=== PATIENT | female | born 1985 | race Caucasian/White ===

== ENCOUNTER 2018-01-08 16:07 | Inpatient (IN) | payer SELFPAY ==
[2018-01-08] VITALS (10 sets, daily range): BP systolic 117–134; BP diastolic 49–93
[~2018-01-08] VITALS: Ht 157.5 cm; Wt 93.6 kg
[2018-01-08] MEDS ORDERED: RT-ALBUTEROL/IPRATROPIUM 3 ML (DUONEB) VIAL INH ONE (16:45)
--- NOTE | 2018-01-08 16:50 | ED Cough/URI ---
General Chief Complaint: Cough/Cold/Flu Symptoms Stated Complaint: CONGESTED, COUGHING, FEVER Nursing Triage Note: PT PRESENTS TO ER WITH COMPLAINT OF COUGH, SOB, FEVER, AND MALAISE FOR 4-5 DAYS. Source: patient Exam Limitations: no limitations History of Present Illness Date Seen by Provider: Jan 08, 2018 Time Seen by Provider: 16:48 Initial Comments To ER with reports of a one-week history of cough shortness of breath intermittent fever and malaise. No history of asthma. She does smoke 1/2-3/4 of a pack of cigarettes per day. Timing/Duration: week, getting worse Severity/Quality: dry cough Associated Symptoms: wheezing Allergies and Home Medications Allergies Coded Allergies: No Known Drug Allergies (Unverified , 01/08/18) Home Medications No Active Prescriptions or Reported Meds Patient Home Medication List Home Medication List Reviewed: Yes Review of Systems Review of Systems Constitutional: see HPI, chills, fever EENTM: see HPI Respiratory: see HPI, short of breath (i NOW), wheezing Cardiovascular: no symptoms reported Genitourinary: no symptoms reported Musculoskeletal: no symptoms reported Skin: no symptoms reported Psychiatric/Neurological: No Symptoms Reported Past Flfvedp-Jssasj-Wfqneh Hx Patient Social History Alcohol Use: Denies Use Recreational Drug Use: No Smoking Status: Current Everyday Smoker Type Used: Cigars Recent Foreign Travel: No Contact w/Someone Who Travel: No Recent Infectious Disease Expo: No Recent Hopitalizations: No Immunizations Up To Date Tetanus Booster (TDap): Unknown PED Vaccines UTD: Yes Seasonal Allergies Seasonal Allergies: No Past Medical History Surgeries: Yes Tubal Ligation Respiratory: No Cardiac: No Neurological: No Genitourinary: No Gastrointestinal: No Musculoskeletal: No Endocrine: No HEENT: No Cancer: No Psychosocial: No Integumentary: No Blood Disorders: No Physical Exam Vital Signs - First Documented 01/08/18 16:35 Temp 98.0 Pulse 120 Resp 20 B/P (MAP) 165/107 (126) Pulse Ox 92 O2 Delivery Room Air Capillary Refill : Less Than 3 Seconds Height: 5'3.00" Weight: 170lbs. oz. 77.510135st; BMI Method:Stated General Appearance: WD/WN, no apparent distress, other (oxygen saturation 89% at rest and increases to 93% with talking.) Eyes: Bilateral Eye Normal Inspection, Bilateral Eye PERRL, Bilateral Eye EOMI HEENT: PERRL/EOMI, normal ENT inspection Neck: non-tender, full range of motion Respiratory: no respiratory distress, decreased breath sounds, wheezing, other (speaks in full sentences) Cardiovascular: regular rate, rhythm, no murmur Gastrointestinal: normal bowel sounds, non tender, soft Extremities: normal range of motion, non-tender, other (no leg swelling) Neurologic/Psychiatric: alert, normal mood/affect, oriented x 3 Skin: normal color, warm/dry Focused Exam Lactate Level 01/08/18 17:09: Lactic Acid Level 1.23 Lactic Acid Level Laboratory Tests Test 01/08/18 17:09 Lactic Acid Level 1.23 MMOL/L (0.50-2.00) Progress/Results/Core Measures Suspected Sepsis Recent Fever Within 48 Hours: Yes Infection Criteria Present: None New/Unexplained Altered Menta: No Sepsis Screen: No Definite Risk SIRS Temperature:98.0 Pulse: 120 Respiratory Rate: 20 Laboratory Tests 01/08/18 17:09: White Blood Count 11.7H Blood Pressure 165 /107 Mean: 126 01/08/18 17:09: Lactic Acid Level 1.23 Laboratory Tests 01/08/18 17:09: Creatinine 0.76, Platelet Count 238 Results/Orders Lab Results Laboratory Tests Test 01/08/18 17:09 01/08/18 18:25 Range/Units White Blood Count 11.7 H 4.3-11.0 10^3/uL Red Blood Count 5.07 4.35-5.85 10^6/uL Hemoglobin 15.1 11.5-16.0 G/DL Hematocrit 43 35-52 % Mean Corpuscular Volume 85 80-99 FL Mean Corpuscular Hemoglobin 30 25-34 PG Mean Corpuscular Hemoglobin Concent 35 32-36 G/DL Red Cell Distribution Width 13.5 10.0-14.5 % Platelet Count 238 130-400 10^3/uL Mean Platelet Volume 11.2 H 7.4-10.4 FL Neutrophils (%) (Auto) 69 42-75 % Lymphocytes (%) (Auto) 20 12-44 % Monocytes (%) (Auto) 8 0-12 % Eosinophils (%) (Auto) 3 0-10 % Basophils (%) (Auto) 0 0-10 % Neutrophils # (Auto) 8.0 H 1.8-7.8 X 10^3 Lymphocytes # (Auto) 2.4 1.0-4.0 X 10^3 Monocytes # (Auto) 1.0 0.0-1.0 X 10^3 Eosinophils # (Auto) 0.3 0.0-0.3 10^3/uL Basophils # (Auto) 0.0 0.0-0.1 10^3/uL D-Dimer 0.90 H 0.00-0.49 UG/ML Sodium Level 138 135-145 MMOL/L Potassium Level 3.6 3.6-5.0 MMOL/L Chloride Level 106 98-107 MMOL/L Carbon Dioxide Level 18 L 21-32 MMOL/L Anion Gap 14 5-14 MMOL/L Blood Urea Nitrogen 8 7-18 MG/DL Creatinine 0.76 0.60-1.30 MG/DL Estimat Glomerular Filtration Rate > 60 BUN/Creatinine Ratio 11 Glucose Level 101 70-105 MG/DL Lactic Acid Level 1.23 0.50-2.00 MMOL/L Calcium Level 9.2 8.5-10.1 MG/DL Serum Test, Qualitative NEGATIVE NEGATIVE Blood Gas Puncture Site RT RAD Blood Gas Patient Temperature 99.8 Arterial Blood pH 7.39 7.37-7.43 Arterial Blood Partial Pressure CO2 35 35-45 MMHG Arterial Blood Partial Pressure O2 43 L 79-93 MMHG Arterial Blood HCO3 20 L 23-27 MMOL/L Arterial Blood Total CO2 21.3 21.0-31.0 MMOL/L Arterial Blood Oxygen Saturation 74 L 94-100 % Arterial Blood Base Excess -3.7 L -2.5-2.5 MMOL/L Ketan Test YES-POS Blood Gas Ventilator Setting NO Blood Gas Inspired Oxygen 4L My Orders 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 Albuterol/Ipra Inhalation Soln (Duoneb I (01/08/18 16:45) Svn Small Volume Nebulizer (01/08/18 16:43) Cbc With Automated Diff (01/08/18 16:47) Hcg,Qualitative Serum (01/08/18 16:47) Basic Metabolic Panel (01/08/18 16:47) Iv Heplock-Insert (Order) (01/08/18 16:47) Methylprednisolone Sod Succ (Solu-Medrol (01/08/18 17:00) Fibrin Degradation Products (01/08/18 17:05) Albuterol Pre-Mix Nebs (Rt) (Proventil (01/08/18 21:00) Svn Small Volume Nebulizer (01/08/18 17:05) Albuterol Pre-Mix Nebs (Rt) (Proventil (01/08/18 17:15) Svn Small Volume Nebulizer (01/08/18 17:08) Blood Culture (01/08/18 17:10) Lactic Acid Analyzer (01/08/18 17:10) Ns Iv 1000 Ml (Sodium Chloride 0.9%) (01/08/18 17:15) Ibuprofen Tablet (Motrin Tablet) (01/08/18 18:30) Ibuprofen Tablet (Motrin Tablet) (01/08/18 18:30) Chest 1 View, Ap/Pa Only (01/08/18 18:22) Arterial Blood Gas (01/08/18 18:25) Ct Angio Chest W (01/08/18 18:25) Iohexol Injection (Omnipaque 350 Mg/Ml 1 (01/08/18 18:30) Ns (Ivpb) (Sodium Chloride 0.9%) (01/08/18 18:30) Pharmacy Communication (Pharmacy Communi (01/08/18 18:29) Medications Given in ED Current Medications Medications Dose Ordered Sig/Malena Route Start Time Stop Time Status Last Admin Dose Admin Albuterol/ Ipratropium 3 ml ONCE ONCE INH 01/08/18 16:45 01/08/18 16:46 DC 01/08/18 16:47 3 ML Ibuprofen 800 mg ONCE ONCE PO 01/08/18 18:30 01/08/18 18:31 DC 01/08/18 18:30 800 MG Iohexol 100 ml ONCE ONCE IV 01/08/18 18:30 01/08/18 18:31 DC 01/08/18 18:58 100 ML Methylprednisolone Sodium Succinate 125 mg ONCE ONCE IVP 01/08/18 17:00 01/08/18 17:01 DC 01/08/18 17:19 125 MG Sodium Chloride 250 ml ONCE ONCE IV 01/08/18 18:30 01/08/18 18:31 DC 01/08/18 18:58 80 ML Vital Signs/I&O 01/08/1818 01/08/18 16:35 16:52 17:21 Temp 98.0 Pulse 120 Resp 20 B/P (MAP) 165/107 (126) Pulse Ox 92 92 92 O2 Delivery Room Air Room Air OxyMask Capillary Refill : Less Than 3 Seconds Blood Pressure Mean: 126 Departure Communication (Admissions) Time/Spoke to Admitting Phy: 19:[address] Baldwin. Steroids and Zithromax. Time/Spoke to Consulting Phy: 19:[address] Baldwin, he agrees with the plan and will consult in the morning. 1823-after the DuoNeb and hour-long albuterol treatment her oxygen saturation dropped to 86% on room air. She is still very wheezy.she was given oxygen at 5 L percent on mask with improvement in oxygen saturation to 89-90%. Since this was inadequate Vapotherm will be started. Steroids have been given. 1940-Vapotherm is going, 100% FiO2, 25 L. Her oxygen saturation is 95% on room air, heart rate 111 blood pressure 145/115. Respiratory rate is down to 20. She is much less wheezy at this time and states that she overall feels quite a bit better. 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 She does state that she was born premature and had some lung diseases as a child but states that she hasn't seen a doctor for many years and hasn't had any known medical conditions. Impression Primary Impression: Hypoxia Additional Impression: Reactive airway disease Disposition: ADMITTED INPATIENT Condition: Stable Admissions Decision to Admit Reason: Admit from ER (General) Decision to Admit/Date: Jan 08, 2018 Time/Decision to Admit Time: 19:43 Departure-Patient Inst. Scripts No Active Prescriptions or Reported Meds CAITY SAHNI APRN Jan 08, 2018 16:50
[2018-01-08] MEDS ORDERED: methylPREDNISolone 125 MG (Solu-MEDROL) VIAL IVP ONE (17:00)
[2018-01-08] MEDS ORDERED: NS IV 1000 ML 1,000 ML IV SCH (17:15)
[2018-01-08] MEDS ORDERED: RT-ALBUTEROL SULF 2.5 MG/3 ML PRE-MIX VIAL INH SCH ×2 (17:15→21:00)
[2018-01-08 17:55] LABS: BASOPHILS % (AUTO) 0 % (0-10); EOSINOPHILS # (AUTO) 0.3 10^3/uL (0.0-0.3); EOSINOPHILS % (AUTO) 3 % (0-10); HEMATOCRIT 43 % (35-52); HEMOGLOBIN 15.1 G/DL (11.5-16.0); LYMPHOCYTES # (AUTO) 2.4 X 10^3 (1.0-4.0); LYMPHOCYTES % (AUTO) 20 % (12-44); MEAN CORPUSCULAR HEMOGLOBIN 30 PG (25-34); MEAN CORPUSCULAR HGB CONC 35 G/DL (32-36); MEAN CORPUSCULAR VOLUME 85 FL (80-99); MEAN PLATELET VOLUME 11.2 FL (7.4-10.4); MONOCYTES % (AUTO) 8 % (0-12); NEUTROPHILS % (AUTO) 69 % (42-75); PLATELET COUNT 238 10^3/uL (130-400); RED BLOOD COUNT 5.07 10^6/uL (4.35-5.85); RED CELL DISTRIBUTION WIDTH 13.5 % (10.0-14.5); WHITE BLOOD COUNT 11.7 10^3/uL (4.3-11.0)
[2018-01-08 18:08] LABS: BUN/CREATININE RATIO 11; CALCIUM 9.2 MG/DL (8.5-10.1); CARBON DIOXIDE 18 MMOL/L (21-32); CHLORIDE 106 MMOL/L (98-107); CREATININE SERUM 0.76 MG/DL (0.60-1.30); GFR ESTIMATED > 60; GLUCOSE 101 MG/DL (70-105); POTASSIUM 3.6 MMOL/L (3.6-5.0); SODIUM 138 MMOL/L (135-145)
[2018-01-08] MEDS ORDERED: IOHEXOL 350 MG/ML 100 ML (OMNIPAQUE 350) VIAL IV ONE (18:30)
[2018-01-08] MEDS ORDERED: NS 250 ML (IVPB) BAG IV ONE (18:30)
[2018-01-08] MEDS ORDERED: IBUPROFEN 800 MG (MOTRIN) TAB PO ONE ×2 (18:30)
[2018-01-08 18:45] LABS: ABG BASE EXCESS -3.7 MMOL/L (-2.5-2.5); ABG OXYGEN SATURATION 74 % (94-100); ABG PCO2 35 MMHG (35-45); ABG PH 7.39 (7.37-7.43); ABG PO2 43 MMHG (79-93); ABG TCO2 21.3 MMOL/L (21.0-31.0)
[2018-01-08 18:46] LABS: ALLENS TEST YES-POS
[2018-01-08 18:47] LABS: PATIENT TEMP 99.8
[2018-01-08 18:53] LABS: INSPIRED O2 4L; VENTILATOR NO
--- NOTE | 2018-01-08 19:11 | Diagnostic Imaging Report ---
INDICATION: Fever and shortness of breath. No comparison available. FINDINGS: The lungs demonstrate no focal consolidation. There is no effusion or evidence of a pneumothorax. There does, however, appear to be some central perihilar bronchial wall thickening and interstitial thickening. There is no pneumothorax. Heart size and mediastinal contours appear appropriate. Pulmonary vascularity appears normal. IMPRESSION: 1. Central perihilar bronchial wall thickening suggests underlying airways inflammation and may relate to a bronchitis. No alveolar pneumonia is apparent. Dictated by: Dictated on workstation # [id number]
--- NOTE | 2018-01-08 19:21 | Diagnostic Imaging Report ---
PROCEDURE: CT angiography of the chest with contrast. TECHNIQUE: Multiple contiguous axial images were obtained through the chest after uneventful bolus administration of intravenous contrast. Reconstructed CTA MIP acquisitions were also performed. INDICATION: Fever, shortness of air. COMPARISON: No previous for comparison. FINDINGS: There are no intraluminal pulmonary arterial filling defects. There are no findings of pulmonary arterial embolus. The thoracic aorta is patent and nonaneurysmal. Some thickening of the mildly ectatic central airways and some mild micronodular prominence of the interstitial lung markings which may reflect chronic disease or an acute inflammatory process. There is, however, no alveolar consolidation and there is no thoracic effusion. There is bilateral hilar lymphadenopathy, largest right hilar nodes 1.8 x 1.4 cm and on the left 1.9 x 1.4 cm. Largest subcarinal mass 1.9 x 1.1 cm. Left lower paratracheal adenopathy measures 1.5 cm long axis. Right lower paratracheal adenopathy 1.7 cm. Some subcentimeter superior paratracheal nodes are present. No dominant lung parenchymal mass. No suspect lytic or sclerotic bone lesion visualized upper abdomen demonstrates cholelithiasis with intact adrenal glands and nonfocal incompletely visualized liver and spleen. IMPRESSION: 1. Negative for PE or acute aortic disease. 2. Likely acute on chronic interstitial lung disease with hilar and mediastinal lymphadenopathy. Andres disease may be reactive or neoplastic, consider a short-term followup. 3. Cholelithiasis without biliary dilatation. 4. No thoracic effusion, abscess or empyema. Dictated by: Dictated on workstation # [id number]
[2018-01-08] MEDS ORDERED: CATHETER FLUSH 10 ML SYR IV PRN (20:30)
[2018-01-08] MEDS ORDERED: ONDANSETRON 4 MG/2 ML (SDV) Z0FRAN IV PRN (20:30)
[2018-01-08] MEDS: NS IV 1000 ML 1,000 ML IV SCH (22:40)
[2018-01-08] MEDS: CATHETER FLUSH 10 ML SYR IV SCH (22:46)
[2018-01-08] MEDS: AZITHROMYCIN 500 MG/NS 250 ML IVPB IV SCH ×2 (22:46)
[2018-01-08] MEDS ORDERED: RT-ALBUTEROL/IPRATROPIUM 3 ML (DUONEB) VIAL INH PRN (23:45)
[2018-01-08] MEDS: methylPREDNISolone 125 MG (Solu-MEDROL) VIAL IV SCH (23:53)
[2018-01-09] VITALS (24 sets, daily range): BP systolic 111–146; BP diastolic 65–97
[2018-01-09] MEDS ORDERED: RT-ALBUTEROL/IPRATROPIUM 3 ML (DUONEB) VIAL INH SCH (02:00)
[2018-01-09 03:30] LABS: BASOPHILS % (AUTO) 0 % (0-10); EOSINOPHILS % (AUTO) 0 % (0-10); HEMATOCRIT 39 % (35-52); HEMOGLOBIN 13.7 G/DL (11.5-16.0); LYMPHOCYTES # (AUTO) 0.6 X 10^3 (1.0-4.0); LYMPHOCYTES % (AUTO) 7 % (12-44); MEAN CORPUSCULAR HEMOGLOBIN 30 PG (25-34); MEAN CORPUSCULAR HGB CONC 35 G/DL (32-36); MEAN CORPUSCULAR VOLUME 86 FL (80-99); MEAN PLATELET VOLUME 11.3 FL (7.4-10.4); MONOCYTES % (AUTO) 1 % (0-12); NEUTROPHILS # (AUTO) 7.9 X 10^3 (1.8-7.8); NEUTROPHILS % (AUTO) 92 % (42-75); PLATELET COUNT 218 10^3/uL (130-400); RED BLOOD COUNT 4.54 10^6/uL (4.35-5.85); RED CELL DISTRIBUTION WIDTH 13.2 % (10.0-14.5); WHITE BLOOD COUNT 8.5 10^3/uL (4.3-11.0)
[2018-01-09 03:53] LABS: ALANINE AMINOTRANSFERASE 22 U/L (0-55); ALBUMIN 3.7 GM/DL (3.2-4.5); ALKALINE PHOSPHATASE 83 U/L (40-136); BILIRUBIN,TOTAL 0.3 MG/DL (0.1-1.0); BUN/CREATININE RATIO 13; CALCIUM 8.9 MG/DL (8.5-10.1); CARBON DIOXIDE 16 MMOL/L (21-32); CHLORIDE 110 MMOL/L (98-107); CREATININE SERUM 0.72 MG/DL (0.60-1.30); GFR ESTIMATED > 60; GLUCOSE 180 MG/DL (70-105); MAGNESIUM 2.3 MG/DL (1.8-2.4); PHOSPHORUS 2.1 MG/DL (2.3-4.7); POTASSIUM 3.2 MMOL/L (3.6-5.0); SODIUM 138 MMOL/L (135-145); TOTAL PROTEIN 7.2 GM/DL (6.4-8.2)
[2018-01-09 04:01] LABS: BENZODIAZEPINES SCREEN URINE POSITIVE (NEGATIVE); CANNABINOID SCREEN, URINE POSITIVE (NEGATIVE); OPIATE SCREEN URINE POSITIVE (NEGATIVE)
[2018-01-09 04:02] LABS: AMPHETAMINE SCREEN, URINE NEGATIVE (NEGATIVE); BARBITURATE SCREEN URINE NEGATIVE (NEGATIVE); COCAINE SCREEN URINE NEGATIVE (NEGATIVE); METHADONE STAT NEGATIVE (NEGATIVE); METHAMPHETAMINE SCREEN URINE S NEGATIVE (NEGATIVE); OXYCODONE STAT NEGATIVE (NEGATIVE); PROPOXYPHENE STAT NEGATIVE (NEGATIVE); TRICYCLIC ANTIDEPRESSANTS SCRE NEGATIVE (NEGATIVE)
[2018-01-09] MEDS: CATHETER FLUSH 10 ML SYR IV SCH ×3 (05:10→20:30)
[2018-01-09 05:24] LABS: LYMPHOCYTES % (MANUAL) 4 %; NEUTROPHILS % (MANUAL) 96 %
--- NOTE | 2018-01-09 05:27 | Pulmonary Consultation ---
History of Present Illness History of Present Illness Date of Consultation 01/09/18 05:23 Time Seen by Provider: 12:35 Date of Admission History of Present Illness 32yo with hx of tobacco use with progressive SOB, cough, and fever. SHe also complains of itchy eyes, and running nose. She was admitted to ICU for close monitoring and treatment of asthmaAE. Allergies and Home Medications Allergies Coded Allergies: No Known Drug Allergies (Unverified , 01/08/18) Home Medications Albuterol Sulfate 6.7 Gm Hfa.aer.ad, 1 PUFF IH Q4H 1 PUFF Prescribed by: RICK OLIVARES on 01/13/18 1011 Fluticasone/Salmeterol 1 Each Blst.w.dev, 1 EACH IH BID Prescribed by: RICK OLIVARES on 01/13/18 0939 Prednisone 10 Mg Tab.ds.pk, 10 MG PO DAILY Take 6 tabs(60mg)daily,decrease by 1 tab(10mg)every other day. Prescribed by: RICK OLIVARES on 01/13/18 0939 Sertraline HCl 50 Mg Tablet, 50 MG PO HS Prescribed by: RICK OLIVARES on 01/13/18 0939 Past Enhuirx-Oiqkwt-Qkrybd Hx Patient Social History Alcohol Use: Denies Use Recreational Drug Use: No Smoking Status: Current Everyday Smoker Type Used: Cigarettes Recent Foreign Travel: No Contact w/Someone Who Travel: No Recent Infectious Disease Expo: No Recent Hopitalizations: No Immunizations Up To Date Tetanus Booster (TDap): Unknown PED Vaccines UTD: Yes Seasonal Allergies Seasonal Allergies: No Past Medical History Surgeries: Yes Tubal Ligation Respiratory: No Cardiac: No Neurological: No Genitourinary: No Gastrointestinal: No Musculoskeletal: No Endocrine: No HEENT: No Cancer: No Psychosocial: No Integumentary: No Blood Disorders: No Adverse Reaction/Blood Tranf: No Review of Systems Time Seen by Provider: 12:45 Constitutional: Fever, Sweats, Weakness, Malaise Eyes: No: Pain, Vision change, Conjunctivae inflammation, Eyelid inflammation, Other, Redness ENT: Nose congestion Respiratory: Cough, Shortness of breath, Wheezing Cardiovascular: Paroxysmal Noc. Dyspnea Neurological: Weakness Sepsis Event Evaluation Height, Weight, BMI Height: 5'2.00" Weight: 200lbs. 1.0oz. 90.355452ox; 36.6 BMI Method:Stated Exam Exam Vital Signs Date Time Temp Pulse Resp B/P (MAP) Pulse Ox O2 Delivery O2 Flow Rate FiO2 01/09/18 04:00 89 25 112/65 (81) 94 Vapotherm 70.00 15.00 01/09/18 04:00 94 Vapotherm 15.00 70 01/09/18 03:00 96 27 127/71 (89) 93 Vapotherm 70.00 15.00 01/09/18 02:00 87 23 113/69 (84) 91 Vapotherm 70.00 15.00 01/09/18 01:50 95 20 94 Vapotherm 70.00 15.00 01/09/18 01:30 94 Vapotherm 18.00 75 01/09/18 01:29 Vapotherm 25.00 75 01/09/18 01:00 115 25 113/73 (86) 95 Vapotherm 75.00 18.00 01/09/18 01:00 115 01/09/18 00:00 98 16 113/69 (84) 94 Vapotherm 75.00 18.00 01/09/18 00:00 94 Vapotherm 15.00 75 01/08/18 23:25 93 100 100 01/08/18 23:04 100 Vapotherm 25.00 100 01/08/18 23:00 88 19 120/49 (72) 96 Vapotherm 75.00 18.00 01/08/18 22:10 95 26 95 Vapotherm 75.00 18.00 01/08/18 22:00 90 14 123/67 (85) 99 Vapotherm 100.00 25.00 01/08/18 21:45 104 29 134/82 (99) 96 Vapotherm 100.00 25.00 01/08/18 21:30 103 20 121/64 (83) 97 Vapotherm 100.00 25.00 01/08/18 21:15 106 36 133/93 (106) 98 Vapotherm 100.00 25.00 01/08/18 21:00 90 21 122/68 (86) 98 Vapotherm 100.00 25.00 01/08/18 20:45 101 25 117/81 (93) 97 Vapotherm 100.00 25.00 01/08/18 20:40 Vapotherm 100 01/08/18 20:30 113 33 124/75 (91) 100 Vapotherm 100.00 25.00 01/08/18 20:26 99 01/08/18 20:25 98.2 109 22 131/85 (100) 96 Vapotherm 100.00 25.00 01/08/18 20:05 98.0 100 12 120/65 98 01/08/18 17:21 92 OxyMask 01/08/18 16:52 92 Room Air 01/08/18 16:35 98.0 120 20 165/107 (126) 92 Room Air I & O 01/09/18 07:00 Intake Total 1000 ml Balance 1000 ml Height & Weight Height: 5'2.00" Weight: 200lbs. 1.0oz. 90.350975za; 36.6 BMI Method:Stated General Appearance: Mild Distress HEENT: PERRL/EOMI, Pharynx Normal Neck: Full Range of Motion, Non Tender, Supple Respiratory: Crackles, Decreased Breath Sounds, Wheezing Capillary Refill: Less Than 3 Seconds Gastrointestinal: normal bowel sounds, non tender, soft Neurologic/Psychiatric: Alert, Oriented x3 Skin: Normal Color, Warm/Dry Results Lab Laboratory Tests 01/08/18 17:09 01/09/18 03:10 Assessment/Plan Assessment/Plan Acute respiratory distress with hypoxia probably asthmaAE/acute bronchitis r/o pneumonia -Increase SVN to Q2 -IVF -Continue SOlumedrol IV -Check sputum culture COPDAE HYpokalemia/hypophos -Replace Marijuanna use Tobacco use - -She has smoked since she was 10 Obesity ADOLPH KWONG DO Jan 09, 2018 05:27
[2018-01-09] MEDS ORDERED: POTASSIUM PHOSPHATE INJ 30 MM in NS (IVPB) 250 ML IV ONE (05:30)
[2018-01-09] MEDS: methylPREDNISolone 125 MG (Solu-MEDROL) VIAL IV SCH ×3 (06:38→19:14)
[2018-01-09] MEDS: NS IV 1000 ML 1,000 ML IV SCH ×3 (06:41→20:30)
[2018-01-09] MEDS: RT-ALBUTEROL/IPRATROPIUM 3 ML (DUONEB) VIAL INH SCH ×8 (06:53→22:01)
[2018-01-09] MEDS: FLUTICASONE NASAL SPRAY (FLONASE) 16 GM BTL NS SCH (08:56)
[2018-01-09] MEDS: LORATADINE (CLARITIN) 10 MG TAB PO SCH (08:57)
--- NOTE | 2018-01-09 09:25 | Diagnostic Imaging Report ---
EXAM: Portable erect AP chest at 2:10 a.m. INDICATION: Hypoxia FINDINGS: The heart size is within normal limits and stable when compared to 01/08/2018. The central pulmonary vascularity does not seem quite as prominent as on the prior exam. In the interval since the prior study however a small area of atelectasis/infiltrate has developed in the right lung base. The patchy alveolar/interstitial infiltrate in the left infrahilar region seen on the CTA chest exam performed yesterday is not as well appreciated on this study. The upper lungs remain clear. The mediastinum is not widened. The osseous structures are intact. IMPRESSION: There are mixed results. The central pulmonary vascularity does not seem as prominent as on the prior exam but there now appears to a small focus of pneumonia/atelectasis in the right lung base. Clinical followup is recommended. Dictated by: Dictated on workstation # [id number]
--- NOTE | 2018-01-09 09:38 | History & Physical-Hospitalist ---
History of Present Illness HPI/Chief Complaint This is a 32-year-old white female who presents to the emergency room with a 5 day history of cough increased shortness of breath and wheezing. She notes that every year about this time she has trouble begins with an itchy eyes runny nose and somewhat correlates with harvest of corn. At the time my interview she is tachycardic shaky and very wheezy. She notes that should also been coughing up greenish sputum in the last week or so. 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 She denies having any trouble with asthma as a child growing up but her mother told her she also has had weak lungs. Source: patient Exam Limitations: no limitations Date Seen 01/09/18 Time Seen by Provider: 09:00 Attending Physician Ellie Nevarez MD PCP No,Local Physician Referring Physician Date of Admission Jan 08, 2018 at 19:40 Home Medications & Allergies Home Medications Reviewed patient Home Medication Reconciliation performed by pharmacy medication reconciliations desktop technician and/or nursing. Patients Allergies have been reviewed. 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: employed Alcohol Use: Denies Use Recreational Drug Use: No Smoking Status: Current Everyday Smoker Type Used: Cigarettes Physical Abuse Screen: No Sexual Abuse: No Recent Foreign Travel: No Contact w/other who traveled: No Recent Hopitalizations: No Recent Infectious Disease Expo: No Immunizations Up To Date Tetanus Booster (TDap): Unknown Pediatric: Yes Seasonal Allergies Seasonal Allergies: No Past Medical History Surgeries: Tubal Ligation History of Blood Disorders: No Adverse Reaction to Blood Noonan: No Family History Other Conditions/Hx (Mother at a young age of an unknown cause thought to be heart) Review of Systems Constitutional: see HPI EENTM: no symptoms reported Respiratory: cough, dyspnea on exertion, short of breath, wheezing Cardiovascular: no symptoms reported Gastrointestinal: no symptoms reported Genitourinary: no symptoms reported Musculoskeletal: no symptoms reported Skin: no symptoms reported Psychiatric/Neurological: Anxiety Physical Exam Physical Exam Vital Signs Vital Signs - First Documented 01/08/18 01/08/18 01/08/18 16:35 20:25 20:40 Temp 98.0 Pulse 120 Resp 20 B/P (MAP) 165/107 (126) Pulse Ox 92 O2 Delivery Room Air O2 Flow Rate 100.00 25.00 FiO2 100 Capillary Refill : Less Than 3 Seconds Height, Weight, BMI Height: 5'2.00" Weight: 200lbs. 1.0oz. 90.346463cl; 36.6 BMI Method:Stated General Appearance: Anxious, Moderate Distress Eyes: Bilateral Eye Normal Inspection HEENT: PERRL/EOMI, Pharynx Normal, Other (Very poor dentition) Neck: Full Range of Motion, Normal Inspection, Non Tender, Supple Respiratory: Decreased Breath Sounds, Rhonci, Wheezing Cardiovascular: No Edema, No Gallop, No JVD, No Murmur, Normal Peripheral Pulses, Tachycardia Gastrointestinal: Normal Bowel Sounds, No Organomegaly, Non Tender, Soft Rectal: Deferred Back: Normal Inspection Extremity: Normal Capillary Refill, Normal Inspection, Normal Range of Motion, Non Tender, No Calf Tenderness Neurologic/Psychiatric: Alert, Oriented x3, No Motor/Sensory Deficits, 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 Imaging: Reviewed Imaging Films, Reviewed Imaging Report Assessment/Plan Admission Diagnosis 1. Acute respiratory distress with hypoxia and diffuse wheezing and hilar and mediastinal adenopathy. The patient has had a large gr exposure with possible mold exposure. Appreciate Dr. Baldwin's help we'll continue Zithromax and IV steroids. Follow-up CT Will need to be done. 2. Mediastinal and hilar adenopathy uncertain etiology 3. Morbid obesity with a BMI of 36 4. Tobaccoism curtailed and counseled 5. 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 This will require more than 2 nights of inpatient hospitalization for evaluation and treatment Critical Care Critically Ill Patient Clinical Quality Measures DVT/VTE Risk/Contraindication: Risk Factor Score Per Nursin RFS Level Per Nursing on Admit: 2=Moderate ELLIE NEVAREZ MD Jan 09, 2018 09:38
[2018-01-09] MEDS: ENOXAPARIN 40 MG/0.4 ML (LOVENOX) SYR SC SCH (10:17)
[2018-01-09] MEDS: AZITHROMYCIN 500 MG/NS 250 ML IVPB IV SCH ×2 (21:22)
[2018-01-09] MEDS: MONTELUKAST 10 MG (SINGULAIR) TAB PO SCH (21:23)
[2018-01-09] MEDS: SERTRALINE 50 MG (ZOLOFT) TABLET PO SCH (21:23)
[2018-01-10] VITALS (15 sets, daily range): BP systolic 111–158; BP diastolic 67–90
[2018-01-10] MEDS: methylPREDNISolone 125 MG (Solu-MEDROL) VIAL IV SCH ×5 (00:30→23:56)
[2018-01-10] MEDS ORDERED: RT-ALBUTEROL/IPRATROPIUM 3 ML (DUONEB) VIAL INH SCH (02:00)
[2018-01-10] MEDS: RT-ALBUTEROL/IPRATROPIUM 3 ML (DUONEB) VIAL INH SCH ×6 (02:03→22:30)
[2018-01-10 03:54] LABS: BASOPHILS % (AUTO) 0 % (0-10); EOSINOPHILS % (AUTO) 0 % (0-10); HEMATOCRIT 37 % (35-52); HEMOGLOBIN 12.4 G/DL (11.5-16.0); LYMPHOCYTES # (AUTO) 0.9 X 10^3 (1.0-4.0); LYMPHOCYTES % (AUTO) 4 % (12-44); MEAN CORPUSCULAR HEMOGLOBIN 29 PG (25-34); MEAN CORPUSCULAR HGB CONC 34 G/DL (32-36); MEAN CORPUSCULAR VOLUME 87 FL (80-99); MEAN PLATELET VOLUME 11.5 FL (7.4-10.4); MONOCYTES # (AUTO) 0.4 X 10^3 (0.0-1.0); MONOCYTES % (AUTO) 2 % (0-12); NEUTROPHILS # (AUTO) 20.1 X 10^3 (1.8-7.8); NEUTROPHILS % (AUTO) 94 % (42-75); PLATELET COUNT 262 10^3/uL (130-400); RED BLOOD COUNT 4.26 10^6/uL (4.35-5.85); RED CELL DISTRIBUTION WIDTH 13.9 % (10.0-14.5); WHITE BLOOD COUNT 21.5 10^3/uL (4.3-11.0)
[2018-01-10] MEDS: CATHETER FLUSH 10 ML SYR IV SCH ×3 (04:08→20:55)
[2018-01-10 04:21] LABS: ALANINE AMINOTRANSFERASE 18 U/L (0-55); ALBUMIN 3.3 GM/DL (3.2-4.5); ALKALINE PHOSPHATASE 76 U/L (40-136); BILIRUBIN,TOTAL 0.2 MG/DL (0.1-1.0); BUN/CREATININE RATIO 19; CALCIUM 8.8 MG/DL (8.5-10.1); CARBON DIOXIDE 18 MMOL/L (21-32); CHLORIDE 114 MMOL/L (98-107); CREATININE SERUM 0.68 MG/DL (0.60-1.30); GFR ESTIMATED > 60; GLUCOSE 154 MG/DL (70-105); MAGNESIUM 2.1 MG/DL (1.8-2.4); PHOSPHORUS 2.9 MG/DL (2.3-4.7); POTASSIUM 3.4 MMOL/L (3.6-5.0); SODIUM 142 MMOL/L (135-145)
[2018-01-10 04:22] LABS: LYMPHOCYTES % (MANUAL) 3 %; MONOCYTES % (MANUAL) 1 %; NEUTROPHILS % (MANUAL) 96 %
[2018-01-10 04:23] LABS: RBC MORPH NORMAL; TOXIC GRANULATION/VACUOLAZATIO 2+
[2018-01-10] MEDS: NS IV 1000 ML 1,000 ML IV SCH (07:13)
--- NOTE | 2018-01-10 08:05 | Pulmonary Progress Note ---
Subjective Time Seen by Provider: 08:04 Subjective/Events-last exam Persistent SOB and wheezing Sepsis Event Evaluation Height, Weight, BMI Height: 5'2.00" Weight: 204lbs. 1.0oz. 92.370858ex; 36.6 BMI Method:Stated Focused Exam Lactate Level 01/08/18 17:09: Lactic Acid Level 1.23 Exam Exam Vital Signs Date Time Temp Pulse Resp B/P (MAP) Pulse Ox O2 Delivery O2 Flow Rate FiO2 01/10/18 07:05 98 Vapotherm 15.00 50 01/10/18 06:00 80 24 121/75 (90) 93 Vapotherm 50.00 15.00 01/10/18 05:00 99 24 116/78 (91) 95 Vapotherm 50.00 15.00 01/10/18 04:00 100 27 119/70 (86) 93 Vapotherm 50.00 15.00 01/10/18 04:00 98 Vapotherm 15.00 50 01/10/18 03:56 97.7 01/10/18 03:00 94 21 127/68 (87) 91 Vapotherm 50.00 15.00 01/10/18 02:04 94 Vapotherm 15.00 50 01/10/18 02:00 85 22 117/69 (85) 93 Vapotherm 50.00 15.00 01/10/18 01:00 96 25 111/71 (84) 93 Vapotherm 50.00 15.00 01/10/18 01:00 96 01/10/18 00:13 108 27 113/67 (82) 92 Vapotherm 50.00 15.00 01/10/18 00:00 97 Vapotherm 15.00 50 01/10/18 00:00 98.0 01/09/18 23:24 113 23 125/69 (87) 93 Vapotherm 50.00 15.00 01/09/18 22:03 95 Vapotherm 15.00 50 01/09/18 22:00 112 20 132/77 (95) 93 Vapotherm 50.00 15.00 01/09/18 21:00 115 22 133/72 (92) 94 Vapotherm 50.00 15.00 01/09/18 20:04 97.9 133 32 125/78 (94) 94 Vapotherm 50.00 15.00 01/09/18 20:00 96 Vapotherm 15.00 50 01/09/18 19:57 124 01/09/18 19:00 124 29 117/67 (84) 92 Vapotherm 50.00 15.00 01/09/18 18:27 94 Vapotherm 15.00 50 01/09/18 18:00 117 18 126/76 (93) 96 Vapotherm 50.00 15.00 01/09/18 17:00 123 24 111/77 (88) 94 Vapotherm 50.00 15.00 01/09/18 16:10 94 Vapotherm 15.00 60 01/09/18 16:00 97.2 128 19 138/74 (95) 93 Vapotherm 50.00 15.00 01/09/18 15:00 131 26 146/79 (101) 92 Vapotherm 50.00 15.00 01/09/18 14:15 91 Vapotherm 15.00 50 01/09/18 14:00 123 24 133/84 (100) 92 Vapotherm 50.00 15.00 01/09/18 13:00 135 01/09/18 13:00 135 23 139/80 (99) 90 Vapotherm 60.00 15.00 01/09/18 12:30 95 Vapotherm 15.00 60 01/09/18 12:15 94 Vapotherm 15.00 60 01/09/18 12:14 97.7 Venturi Mask 60.00 15.00 01/09/18 12:00 131 28 120/72 (88) 91 Vapotherm 60.00 15.00 01/09/18 11:00 114 23 131/69 (89) 90 Vapotherm 60.00 12.00 01/09/18 10:18 91 Vapotherm 12.00 60 01/09/18 10:00 112 25 123/68 (86) 92 Vapotherm 60.00 12.00 01/09/18 09:00 122 22 133/79 (97) 94 Vapotherm 60.00 12.00 01/09/18 08:35 94 Vapotherm 12.00 60 01/09/18 08:35 91 Vapotherm 12.00 60 01/09/18 08:00 112 32 114/67 (83) 94 Vapotherm 60.00 12.00 I & O 01/10/18 07:00 Intake Total 3760 ml Output Total 420 ml Balance 3340 ml Height & Weight Height: 5'2.00" Weight: 204lbs. 1.0oz. 92.021801lz; 36.6 BMI Method:Stated General Appearance: Anxious, Moderate Distress HEENT: PERRL/EOMI, Pharynx Normal, Other (Very poor dentition) Neck: Full Range of Motion, Normal Inspection, Non Tender, Supple Respiratory: Decreased Breath Sounds, Rhonci, Wheezing Cardiovascular: No Edema, No Gallop, No JVD, No Murmur, Normal Peripheral Pulses, Tachycardia Capillary Refill: Less Than 3 Seconds Gastrointestinal: normal bowel sounds, non tender, soft Extremity: Normal Capillary Refill, Normal Inspection, Normal Range of Motion, Non Tender, No Calf Tenderness Neurologic/Psychiatric: Alert, Oriented x3, No Motor/Sensory Deficits, client leader II- XII Norm as Tested Skin: Warm/Dry, Pallor Results Lab Laboratory Tests 01/08/18 17:09 01/09/18 03:10 01/10/18 03:10 Assessment/Plan Assessment/Plan COPDAE/acute bronchitis with pneumonia -Increase SVN to Q4 -IVF decrease to 30cc/hr -Check BNP -Continue SOlumedrol IV -Check sputum culture -Currently requiring Vapotherm HYpokalemia -Replace Marijuanna use Tobacco use - -She has smoked since she was 10 Obesity Will transfer pt to 4th floor with telemetry. Critical Care: Critically Ill Patient ADOLPH KWONG DO Jan 10, 2018 08:05
[2018-01-10] MEDS ORDERED: KCL 20 MEQ TAB (K-DUR) PO NR (08:15)
--- NOTE | 2018-01-10 08:20 | Progress Note-Hospitalist ---
Subjective HPI/CC On Admission Date Seen by Provider: Jan 10, 2018 Time Seen by Provider: 08:11 This is a 32-year-old white female who presents to the emergency room with a 5 day history of cough increased shortness of breath and wheezing. She notes that every year about this time she has trouble begins with an itchy eyes runny nose and somewhat correlates with harvest of corn. At the time my interview she is tachycardic shaky and very wheezy. She notes that should also been coughing up greenish sputum in the last week or so. 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 She denies having any trouble with asthma as a child growing up but her mother told her she also has had weak lungs. Subjective/Events-last exam Pt reports doing well and breathing much better. Only concern is constipation but does not want any treatment until she is in a room with a private bathroom. Focused Exam Lactate Level 01/08/18 17:09: Lactic Acid Level 1.23 Objective Exam Vital Signs Vital Signs Date Time Temp Pulse Resp B/P (MAP) Pulse Ox O2 Delivery O2 Flow Rate FiO2 01/11/18 14:30 95 High Flow N/C 4.00 01/11/18 12:00 97.9 80 24 130/80 (97) 01/11/18 06:20 30 Capillary Refill : Less Than 3 Seconds General Appearance: No Apparent Distress, WD/WN HEENT: Other (poor dentition) Respiratory: No Accessory Muscle Use, No Respiratory Distress, Other (minimal air movement with scant wheezes) Cardiovascular: Regular Rate, Rhythm, Normal Peripheral Pulses Gastrointestinal: Normal Bowel Sounds, Soft Neurologic/Psychiatric: Alert, Oriented x3, Normal Mood/Affect Results/Procedures Lab Patient resulted labs reviewed. Imaging: Reviewed Imaging Films, Reviewed Imaging Report Assessment/Plan Assessment and Plan Assess & Plan/Chief Complaint COPD exacerbation Critical Care Critical Care: Critically Ill Patient Diagnosis/Problems Diagnosis/Problems (1) COPD (chronic obstructive pulmonary disease) Status: Acute Assessment & Plan: Continue on SOlu Medrol Q4 scheduled Nebs with Q2 prn for wheezing Wean vapotherm as able Pulm consulted, appreciate recs On azithro due to concerns of pneumonia Qualifiers: COPD type: COPD with acute exacerbation Qualified Codes: J44.1 - Chronic obstructive pulmonary disease with (acute) exacerbation (2) Hyperglycemia Assessment & Plan: was 101 on presentation but now elevated Likely due to steroids Trend A1c pending (3) Hypokalemia Status: Acute Assessment & Plan: Replaced per protocol (4) Leukocytosis Assessment & Plan: likely due to steroids Trend Clinical Quality Measures DVT/VTE Risk/Contraindication: Risk Factor Score Per Nursin RFS Level Per Nursing on Admit: 2=Moderate RICK OLIVARES MD Jan 10, 2018 8:20 am
[2018-01-10] MEDS: LORATADINE (CLARITIN) 10 MG TAB PO SCH (08:53)
[2018-01-10] MEDS: ENOXAPARIN 40 MG/0.4 ML (LOVENOX) SYR SC SCH (08:54)
[2018-01-10] MEDS: FLUTICASONE NASAL SPRAY (FLONASE) 16 GM BTL NS SCH (08:54)
[2018-01-10] MEDS ORDERED: DOCUSATE SODIUM 100 MG (COLACE) CAP PO PRN (09:00)
--- NOTE | 2018-01-10 09:07 | Diagnostic Imaging Report ---
INDICATION: Hypoxia and reactive airway disease. TIME OF EXAM: 3:22 a.m. Correlation is made with prior study from one day earlier. FINDINGS: Heart size is stable. There has been some improved aeration to the right base since yesterday. Perihilar structures remains somewhat prominent with questionable bronchial wall thickening, similar to prior studies. No parenchymal consolidation is seen. No effusion or pneumothorax identified. IMPRESSION: Overall stable appearance to the chest with exception of some improved aeration in the right base when compared with prior exams from one and 2 days earlier. Dictated by: Dictated on workstation # [id number]
--- NOTE | 2018-01-10 10:34 | Physician Query Clarification ---
PQ-Conflicting Diagnosis Admission/Discharge Admission Date: Jan 08, 2018 at 19:40 Discharge Date: The medical record reflects the following clinical scenario: History/Risk Factors: COPD with acute exacerbation Tobacco abuse Clinical Findings: 01/09 xray Impression: Small focus of pneumonia/atelectasis on right lung base. Treatment: IV Azithromycin 500mg/Sodium Chloride Question: Dr. Baldwin's consult says," COPD acute exacerbation/acute bronchitis r /o pneumonia". His next progress note says, " COPDAE/acute bronchitis with pneumonia". Do you agree with the impression of Pneumonia per Dr. Baldwin. Please document a response below. PHYSICIAN RESPONSE Do you agree w/Consulting Dx?: Yes In responding to this query, please exercise your independent professional judgment. The purpose of this communication is to more accurately reflect the complexity of your patients condition. The fact that a question is asked does not imply that any particular answer is desired or expected. Thank you for your timely response to this clarification. Requestors name: Edelmira Cote [facility] Phone # ext [phone] or [phone] THIS PHYSICIAN QUERY FORM IS A PERMANENT PART OF THE MEDICAL RECORD EDELMIRA COTE Jan 10, 2018 10:34 RICK OLIVARES MD Jan 11, 2018 15:26
[2018-01-10] MEDS: ACETAMINOPHEN 500 MG TAB (TYLENOL) PO PRN ×2 (15:29→20:39)
[2018-01-10] MEDS: MONTELUKAST 10 MG (SINGULAIR) TAB PO SCH (20:39)
[2018-01-10] MEDS: SERTRALINE 50 MG (ZOLOFT) TABLET PO SCH (20:39)
[2018-01-10] MEDS ORDERED: NS (IVPB) 250 ML ONE (20:45)
[2018-01-10] MEDS ORDERED: AZITHROMYCIN 500 MG (ZITHROMAX) VIAL ONE (20:45)
[2018-01-10] MEDS: AZITHROMYCIN 500 MG/NS 250 ML IVPB IV SCH ×2 (20:55)
[2018-01-11] VITALS: BP 140/73
[2018-01-11] MEDS: RT-ALBUTEROL/IPRATROPIUM 3 ML (DUONEB) VIAL INH SCH ×6 (02:12→23:11)
[2018-01-11 04:00] VITALS: BP 132/79
[2018-01-11] MEDS ORDERED: KCL 20 MEQ TAB (K-DUR) PO SCH (06:00)
[2018-01-11] MEDS ORDERED: MAGNESIUM 1 GM/100 ML IVPB 100 ML IV SCH (06:00)
[2018-01-11] MEDS ORDERED: POTASSIUM CL 10MEQ/50ML IVPB 50 ML IV SCH (06:00)
[2018-01-11] MEDS: CATHETER FLUSH 10 ML SYR IV SCH ×2 (06:04→12:03)
[2018-01-11] MEDS: methylPREDNISolone 125 MG (Solu-MEDROL) VIAL IV SCH (06:04)
--- NOTE | 2018-01-11 07:14 | Pulmonary Progress Note ---
Subjective Time Seen by Provider: 07:14 Subjective/Events-last exam No complications noted. Sepsis Event Evaluation Height, Weight, BMI Height: 5'2.00" Weight: 207lbs. 1.0oz. 93.105794ip; 36.6 BMI Method:Stated Focused Exam Lactate Level 01/08/18 17:09: Lactic Acid Level 1.23 Exam Exam Vital Signs Date Time Temp Pulse Resp B/P (MAP) Pulse Ox O2 Delivery O2 Flow Rate FiO2 01/11/18 06:20 93 Vapotherm 10.00 30 01/11/18 04:00 97.3 81 20 132/79 (96) 92 Vapotherm 30.00 10.00 01/11/18 02:13 92 Vapotherm 10.00 30 01/11/18 00:00 97.8 83 20 140/73 (95) 93 Vapotherm 30.00 10.00 01/10/18 22:30 94 Vapotherm 10.00 30 01/10/18 21:00 Vapotherm 10.00 30 01/10/18 19:25 98.0 97 26 149/72 (97) 94 Vapotherm 30.00 10.00 01/10/18 19:03 92 Vapotherm 10.00 30 01/10/18 15:42 98.4 99 26 158/81 (106) 92 Vapotherm 30.00 10.00 01/10/18 14:50 91 Vapotherm 10.00 30 01/10/18 12:42 99.6 89 20 144/75 (98) 93 Vapotherm 30.00 10.00 01/10/18 12:00 Vapotherm 10.00 30 01/10/18 11:00 105 28 131/90 (104) 92 Vapotherm 50.00 15.00 01/10/18 10:44 94 Vapotherm 15.00 30 01/10/18 10:00 87 7 141/88 (105) 93 Vapotherm 50.00 15.00 01/10/18 09:00 81 23 136/82 (100) 94 Vapotherm 50.00 15.00 01/10/18 08:00 96 Vapotherm 10.00 30 01/10/18 08:00 97.0 01/10/18 08:00 110 23 138/71 (93) 91 Vapotherm 50.00 15.00 I & O 01/11/18 07:00 Intake Total 2100 ml Output Total 201 ml Balance 1899 ml Height & Weight Height: 5'2.00" Weight: 207lbs. 1.0oz. 93.589166qm; 36.6 BMI Method:Stated General Appearance: No Apparent Distress, Anxious HEENT: PERRL/EOMI, Pharynx Normal, Other (Very poor dentition) Neck: Full Range of Motion, Normal Inspection, Non Tender, Supple Respiratory: Decreased Breath Sounds, Rhonci, Wheezing Cardiovascular: No Edema, No Gallop, No JVD, No Murmur, Normal Peripheral Pulses, Tachycardia Capillary Refill: Less Than 3 Seconds Gastrointestinal: normal bowel sounds, non tender, soft Extremity: Normal Capillary Refill, Normal Inspection, Normal Range of Motion, Non Tender, No Calf Tenderness Neurologic/Psychiatric: Alert, Oriented x3, No Motor/Sensory Deficits, public records researcher II- XII Norm as Tested Skin: Warm/Dry, Pallor Results Lab Laboratory Tests 01/10/18 03:10 Assessment/Plan Assessment/Plan COPDAE/acute bronchitis with pneumonia -SVN to Q4 -Continue SOlumedrol IV decrease from 125 Q6 to 40 Q6 -Check sputum culture ILD with MLA -Will need repeat CT scan of chest 6-8wks after discharge. -Out patient PFT and PSG Marijuanna use Tobacco use - -She has smoked since she was 10 Obesity ADOLPH KWONG DO Jan 11, 2018 07:14
[2018-01-11 08:00] VITALS: BP 143/82
[2018-01-11] MEDS: LORATADINE (CLARITIN) 10 MG TAB PO SCH (09:30)
[2018-01-11] MEDS: FLUTICASONE NASAL SPRAY (FLONASE) 16 GM BTL NS SCH (09:31)
[2018-01-11] MEDS: ENOXAPARIN 40 MG/0.4 ML (LOVENOX) SYR SC SCH (09:31)
--- NOTE | 2018-01-11 11:58 | Progress Note-Hospitalist ---
Subjective HPI/CC On Admission Date Seen by Provider: Jan 11, 2018 Time Seen by Provider: 11:53 This is a 32-year-old white female who presents to the emergency room with a 5 day history of cough increased shortness of breath and wheezing. She notes that every year about this time she has trouble begins with an itchy eyes runny nose and somewhat correlates with harvest of corn. At the time my interview she is tachycardic shaky and very wheezy. She notes that should also been coughing up greenish sputum in the last week or so. 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 She denies having any trouble with asthma as a child growing up but her mother told her she also has had weak lungs. Subjective/Events-last exam Pt reports feeling better and breathing better. Focused Exam Lactate Level 01/08/18 17:09: Lactic Acid Level 1.23 Objective Exam Vital Signs Vital Signs Date Time Temp Pulse Resp B/P (MAP) Pulse Ox O2 Delivery O2 Flow Rate FiO2 01/11/18 14:30 95 High Flow N/C 4.00 01/11/18 12:00 97.9 80 24 130/80 (97) 01/11/18 06:20 30 Capillary Refill : Less Than 3 Seconds General Appearance: No Apparent Distress, WD/WN Respiratory: No Accessory Muscle Use, No Respiratory Distress, Wheezing Cardiovascular: Regular Rate, Rhythm, No Murmur Neurologic/Psychiatric: Alert, Oriented x3, Normal Mood/Affect Results/Procedures Lab Patient resulted labs reviewed. Imaging: Reviewed Imaging Films, Reviewed Imaging Report Assessment/Plan Assessment and Plan Assess & Plan/Chief Complaint COPD exacerbation Critical Care Critical Care: Critically Ill Patient Diagnosis/Problems Diagnosis/Problems (1) COPD (chronic obstructive pulmonary disease) Status: Acute Assessment & Plan: Continue on Solu Medrol but decreased dose Q4 scheduled Nebs with Q2 prn for wheezing Weaned off vapotherm, on 4lpm NC currently Pulm consulted, appreciate recs On azithro Qualifiers: COPD type: COPD with acute exacerbation Qualified Codes: J44.1 - Chronic obstructive pulmonary disease with (acute) exacerbation (2) Hyperglycemia Assessment & Plan: was 101 on presentation but now elevated Likely due to steroids Trend A1c 5.2 (3) Hypokalemia Status: Acute Assessment & Plan: Replaced per protocol (4) Leukocytosis Assessment & Plan: likely due to steroids Trend Clinical Quality Measures DVT/VTE Risk/Contraindication: Risk Factor Score Per Nursin RFS Level Per Nursing on Admit: 2=Moderate RICK OLIVARES MD Jan 11, 2018 11:58 am
[2018-01-11 12:00] VITALS: BP 130/80
[2018-01-11] MEDS: methylPREDNISolone 40 MG/ML (Solu-MEDROL) VIAL IV SCH ×2 (12:03→17:57)
[2018-01-11 15:50] VITALS: BP 130/65
[2018-01-11 19:55] VITALS: BP 126/60
[2018-01-11] MEDS: MONTELUKAST 10 MG (SINGULAIR) TAB PO SCH (21:57)
[2018-01-11] MEDS: SERTRALINE 50 MG (ZOLOFT) TABLET PO SCH (21:57)
[2018-01-12 00:08] VITALS: BP 146/85
[2018-01-12] MEDS: methylPREDNISolone 40 MG/ML (Solu-MEDROL) VIAL IV SCH ×4 (00:53→18:10)
[2018-01-12] MEDS: CATHETER FLUSH 10 ML SYR IV SCH ×4 (00:53→20:22)
[2018-01-12] MEDS: RT-ALBUTEROL/IPRATROPIUM 3 ML (DUONEB) VIAL INH SCH ×5 (02:38→22:07)
[2018-01-12 04:00] VITALS: BP 147/88
--- NOTE | 2018-01-12 06:14 | Pulmonary Progress Note ---
Sepsis Event Evaluation Height, Weight, BMI Height: 5'2.00" Weight: 207lbs. 1.0oz. 93.999061br; 36.6 BMI Method:Stated Exam Exam Vital Signs Date Time Temp Pulse Resp B/P (MAP) Pulse Ox O2 Delivery O2 Flow Rate FiO2 01/12/18 04:00 97.0 63 20 147/88 (107) 97 High Flow N/C 2.00 01/12/18 02:38 98 High Flow N/C 2.00 01/12/18 00:08 97.9 59 20 146/85 (105) 95 High Flow N/C 2.00 01/11/18 21:00 Nasal Cannula 2.00 01/11/18 19:55 98.6 84 26 126/60 (82) 92 High Flow N/C 2.00 01/11/18 19:24 95 High Flow N/C 2.00 01/11/18 15:50 96.8 76 20 130/65 (86) 94 High Flow N/C 2.00 01/11/18 14:30 95 High Flow N/C 4.00 01/11/18 12:00 97.9 80 24 130/80 (97) 93 Nasal Cannula 4.00 01/11/18 10:53 96 High Flow N/C 8.00 01/11/18 09:00 High Flow N/C 8.00 01/11/18 08:00 97.3 84 22 143/82 (102) 94 Nasal Cannula 8.00 01/11/18 06:20 93 Vapotherm 10.00 30 I & O 01/12/18 07:00 Intake Total 1877 ml Output Total 1375 ml Balance 502 ml Height & Weight Height: 5'2.00" Weight: 207lbs. 1.0oz. 93.537650ly; 36.6 BMI Method:Stated General Appearance: No Apparent Distress, WD/WN HEENT: Other (poor dentition) Neck: Full Range of Motion, Normal Inspection, Non Tender, Supple Respiratory: No Accessory Muscle Use, No Respiratory Distress, Wheezing Cardiovascular: Regular Rate, Rhythm, No Murmur Capillary Refill: Less Than 3 Seconds Gastrointestinal: normal bowel sounds, non tender, soft Extremity: Normal Capillary Refill, Normal Inspection, Normal Range of Motion, Non Tender, No Calf Tenderness Neurologic/Psychiatric: Alert, Oriented x3, Normal Mood/Affect Skin: Warm/Dry, Pallor Assessment/Plan Assessment/Plan COPDAE/acute bronchitis with pneumonia -SVN to Q4 -Continue SOlumedrol IV 40 Q6 -Repeat labs this AM ILD with MLA -Will need repeat CT scan of chest 6-8wks after discharge. -Out patient PFT and PSG Marijuanna use Tobacco use - -She has smoked since she was 10 Obesity ADOLPH KWONG DO Jan 12, 2018 06:14
[2018-01-12 06:44] LABS: BASOPHILS % (AUTO) 0 % (0-10); EOSINOPHILS % (AUTO) 0 % (0-10); HEMATOCRIT 36 % (35-52); HEMOGLOBIN 12.3 G/DL (11.5-16.0); LYMPHOCYTES # (AUTO) 1.4 X 10^3 (1.0-4.0); LYMPHOCYTES % (AUTO) 11 % (12-44); MEAN CORPUSCULAR HEMOGLOBIN 30 PG (25-34); MEAN CORPUSCULAR HGB CONC 34 G/DL (32-36); MEAN CORPUSCULAR VOLUME 88 FL (80-99); MEAN PLATELET VOLUME 10.9 FL (7.4-10.4); MONOCYTES # (AUTO) 0.6 X 10^3 (0.0-1.0); MONOCYTES % (AUTO) 4 % (0-12); NEUTROPHILS # (AUTO) 10.9 X 10^3 (1.8-7.8); NEUTROPHILS % (AUTO) 85 % (42-75); PLATELET COUNT 243 10^3/uL (130-400); RED BLOOD COUNT 4.14 10^6/uL (4.35-5.85); RED CELL DISTRIBUTION WIDTH 14.1 % (10.0-14.5); WHITE BLOOD COUNT 12.9 10^3/uL (4.3-11.0)
[2018-01-12 07:00] LABS: BUN/CREATININE RATIO 21; CALCIUM 8.7 MG/DL (8.5-10.1); CARBON DIOXIDE 20 MMOL/L (21-32); CHLORIDE 108 MMOL/L (98-107); CREATININE SERUM 0.73 MG/DL (0.60-1.30); GFR ESTIMATED > 60; GLUCOSE 129 MG/DL (70-105); MAGNESIUM 2.6 MG/DL (1.8-2.4); PHOSPHORUS 3.6 MG/DL (2.3-4.7); POTASSIUM 4.4 MMOL/L (3.6-5.0); SODIUM 137 MMOL/L (135-145)
[2018-01-12 07:11] LABS: BAND NEUTROPHILS 3 %; LYMPHOCYTES % (MANUAL) 24 %; METAMYELOCYTES % 1 %; MONOCYTES % (MANUAL) 6 %; NEUTROPHILS % (MANUAL) 66 %; RBC MORPH NORMAL
--- NOTE | 2018-01-12 08:11 | Progress Note-Hospitalist ---
Subjective HPI/CC On Admission Date Seen by Provider: Jan 12, 2018 Time Seen by Provider: 08:03 This is a 32-year-old white female who presents to the emergency room with a 5 day history of cough increased shortness of breath and wheezing. She notes that every year about this time she has trouble begins with an itchy eyes runny nose and somewhat correlates with harvest of corn. At the time my interview she is tachycardic shaky and very wheezy. She notes that should also been coughing up greenish sputum in the last week or so. 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 She denies having any trouble with asthma as a child growing up but her mother told her she also has had weak lungs. Subjective/Events-last exam Pt reports doing well. Was able to walk last night without difficulty. Tried to take oxygen off this morning but sats quickly dropped. Objective Exam Vital Signs Vital Signs Date Time Temp Pulse Resp B/P (MAP) Pulse Ox O2 Delivery O2 Flow Rate FiO2 01/12/18 09:14 92 High Flow N/C 1.00 01/12/18 08:23 98.1 80 20 172/74 (106) 01/11/18 06:20 30 Capillary Refill : Less Than 3 Seconds General Appearance: No Apparent Distress, WD/WN Respiratory: No Accessory Muscle Use, No Respiratory Distress, Wheezing Cardiovascular: Regular Rate, Rhythm, No Murmur Gastrointestinal: Normal Bowel Sounds, Soft Neurologic/Psychiatric: Alert, Oriented x3, Normal Mood/Affect Results/Procedures Lab Laboratory Tests 01/12/18 06:30 Patient resulted labs reviewed. Imaging: Reviewed Imaging Films, Reviewed Imaging Report Assessment/Plan Assessment and Plan Assess & Plan/Chief Complaint COPD exacerbation Critical Care Critical Care: Critically Ill Patient Diagnosis/Problems Diagnosis/Problems (1) COPD (chronic obstructive pulmonary disease) Status: Acute Assessment & Plan: Continue on Solu Medrol Q4 scheduled Nebs with Q2 prn for wheezing On nasal cannula today at 2lpm Pulm consulted, appreciate recs On azithro due to concerns of pneumonia Qualifiers: COPD type: COPD with acute exacerbation Qualified Codes: J44.1 - Chronic obstructive pulmonary disease with (acute) exacerbation (2) Hyperglycemia Assessment & Plan: was 101 on presentation but now elevated Likely due to steroids Trend A1c 5.2 (3) Hypokalemia Status: Acute Assessment & Plan: Replaced per protocol (4) Leukocytosis Assessment & Plan: Improving Likely due to steroids Clinical Quality Measures DVT/VTE Risk/Contraindication: Risk Factor Score Per Nursin RFS Level Per Nursing on Admit: 2=Moderate RICK OLIVARES MD Jan 12, 2018 8:11 am
[2018-01-12 08:23] VITALS: BP 172/74
[2018-01-12] MEDS: FLUTICASONE NASAL SPRAY (FLONASE) 16 GM BTL NS SCH (09:02)
[2018-01-12] MEDS: ENOXAPARIN 40 MG/0.4 ML (LOVENOX) SYR SC SCH (09:02)
[2018-01-12] MEDS: LORATADINE (CLARITIN) 10 MG TAB PO SCH (09:02)
[2018-01-12 12:00] VITALS: BP 165/86
[2018-01-12 15:45] VITALS: BP 130/74
[2018-01-12 19:30] VITALS: BP 135/75
[2018-01-12] MEDS: SERTRALINE 50 MG (ZOLOFT) TABLET PO SCH (20:21)
[2018-01-12] MEDS: MONTELUKAST 10 MG (SINGULAIR) TAB PO SCH (20:21)
[2018-01-13] MEDS: RT-ALBUTEROL/IPRATROPIUM 3 ML (DUONEB) VIAL INH SCH ×4 (00:20→11:22)
[2018-01-13] MEDS: methylPREDNISolone 40 MG/ML (Solu-MEDROL) VIAL IV SCH ×2 (00:41→05:51)
[2018-01-13 01:00] VITALS: BP 141/69
[2018-01-13 03:45] VITALS: BP 142/89
[2018-01-13] MEDS: CATHETER FLUSH 10 ML SYR IV SCH (05:52)
--- NOTE | 2018-01-13 07:15 | Pulmonary Progress Note ---
Sepsis Event Evaluation Height, Weight, BMI Height: 5'2.00" Weight: 206lbs. 4.8oz. 93.265097bq; 36.6 BMI Method:Stated Exam Exam Vital Signs Date Time Temp Pulse Resp B/P (MAP) Pulse Ox O2 Delivery O2 Flow Rate FiO2 01/13/18 07:07 94 High Flow N/C 1.00 01/13/18 03:45 97.7 71 20 142/89 (106) 93 High Flow N/C 1.00 01/13/18 01:00 96.9 82 20 141/69 (93) 92 High Flow N/C 1.00 01/12/18 22:07 92 High Flow N/C 1.00 01/12/18 21:00 Nasal Cannula 1.00 01/12/18 19:30 97.9 70 20 135/75 (95) 93 High Flow N/C 2.00 01/12/18 15:45 97.9 76 22 130/74 (92) 93 High Flow N/C 2.00 01/12/18 14:39 95 High Flow N/C 1.00 01/12/18 12:00 98.2 65 20 165/86 (112) 93 High Flow N/C 2.00 01/12/18 09:14 92 High Flow N/C 1.00 01/12/18 09:00 Nasal Cannula 2.00 01/12/18 08:23 98.1 80 20 172/74 (106) 92 High Flow N/C 2.00 I & O 01/13/18 07:00 Intake Total 2360 ml Output Total 2100 ml Balance 260 ml Height & Weight Height: 5'2.00" Weight: 206lbs. 4.8oz. 93.441834kt; 36.6 BMI Method:Stated General Appearance: No Apparent Distress, WD/WN HEENT: Other (poor dentition) Neck: Full Range of Motion, Normal Inspection, Non Tender, Supple Respiratory: No Accessory Muscle Use, No Respiratory Distress, Wheezing Cardiovascular: Regular Rate, Rhythm, No Murmur Capillary Refill: Less Than 3 Seconds Gastrointestinal: normal bowel sounds, non tender, soft Extremity: Normal Capillary Refill, Normal Inspection, Normal Range of Motion, Non Tender, No Calf Tenderness Neurologic/Psychiatric: Alert, Oriented x3, Normal Mood/Affect Skin: Warm/Dry, Pallor Results Lab Laboratory Tests 01/12/18 06:30 Assessment/Plan Assessment/Plan COPDAE/acute bronchitis with pneumonia -SVN to Q4 -Continue SOlumedrol IV 40 Q6 -- change to prednisone taper ILD with MLA -Will need repeat CT scan with contrast chest 6-8wks after discharge. -Out patient PFT and PSG Marijuanna use Tobacco use - -She has smoked since she was 10 Obesity Pt will need to f/u with me after discharge and repeat CT scan with contrast ADOLPH KWONG DO Jan 13, 2018 07:15
[2018-01-13] MEDS: LORATADINE (CLARITIN) 10 MG TAB PO SCH (08:29)
[2018-01-13] MEDS: FLUTICASONE NASAL SPRAY (FLONASE) 16 GM BTL NS SCH (08:29)
[2018-01-13] MEDS: ENOXAPARIN 40 MG/0.4 ML (LOVENOX) SYR SC SCH (08:30)
[2018-01-13 08:32] VITALS: BP 155/78
[2018-01-13] MEDS ORDERED: predniSONE 10 MG TAB PO SCH (09:00)
[2018-01-13] MEDS ORDERED: PRED10TA22 PO (09:39)
[2018-01-13] MEDS ORDERED: SERT50TA9 PO (09:39)
[2018-01-13] MEDS ORDERED: FLUT1DIS26 IH (09:39)
[2018-01-13] MEDS ORDERED: ALBU6.7H8 IH ×2 (09:39→10:11)
--- NOTE | 2018-01-13 09:41 | Discharge Inst-Simple/Standard ---
Discharge Inst-Standard Discharge Medications New, Converted or Re-Newed RX: Transmitted to Pharmacy Patient Instructions/Follow Up Plan of Care/Instructions/FU: Please continue to take your medications as written. Please follow up with Dr Baldwin and with [facility] to follow up this hospital stay. Activity as Tolerated: Yes Discharge Diet: No Restrictions Return to The Hospital For: SOB, cough, wheezing, if you feel you are getting worse. RICK OLIVARES MD Jan 13, 2018 9:41 am
--- NOTE | 2018-01-13 09:42 | Discharge Summary-Hospitalist ---
Diagnosis/Chief Complaint Date of Admission Jan 08, 2018 at 7:40 pm Date of Discharge Discharge Date: Jan 13, 2018 Admission Diagnosis 1. Acute respiratory distress with hypoxia and diffuse wheezing and hilar and mediastinal adenopathy. The patient has had a large gr exposure with possible mold exposure. Appreciate Dr. Baldwin's help we'll continue Zithromax and IV steroids. Follow-up CT Will need to be done. 2. Mediastinal and hilar adenopathy uncertain etiology 3. Morbid obesity with a BMI of 36 4. Tobaccoism curtailed and counseled 5. 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-will begin Zoloft, social work consult in the morning Discharge Diagnosis (1) COPD (chronic obstructive pulmonary disease) Status: Acute Assessment & Plan: Transition to prednisone Q4 scheduled Nebs with Q2 prn for wheezing Pulm consulted, appreciate recs Completed 5 days of azithro (2) Hyperglycemia Assessment & Plan: was 101 on presentation but now elevated Likely due to steroids Trend A1c 5.2 (3) Hypokalemia Status: Acute Assessment & Plan: Replaced per protocol (4) Leukocytosis Assessment & Plan: Improving Likely due to steroids Discharge Summary Procedures/Consulations Dr Baldwin- Krista Discharge Physical Exam Allergies: Coded Allergies: No Known Drug Allergies (Unverified , 01/08/18) Vitals & I&Os Vital Signs Date Time Temp Pulse Resp B/P (MAP) Pulse Ox O2 Delivery O2 Flow Rate FiO2 01/13/18 11:22 94 High Flow N/C 1.00 01/13/18 08:32 96.7 92 20 155/78 (103) 01/11/18 06:20 30 General Appearance: No Apparent Distress, WD/WN Respiratory: No Accessory Muscle Use, No Respiratory Distress, Wheezing (much improved) Cardiovascular: Regular Rate, Rhythm, No Murmur Neurologic/Psychiatric: Alert, Oriented x3 Hospital Course Pt was admitted for COPD exacerbation. She required high levels of oxygen through vapotherm and IV steroids. She responded slowly but has able to be titrated off of oxygen completely. She is to complete a prednisone taper as an outpatient and follow up with Dr Baldwin. Arrangements were made for medication assistance and she is to follow up with [facility] for [facility] care. Labs (last 24 hrs) Microbiology 01/08/18 Blood Culture - Preliminary, Resulted No growth 01/09/18 Gram Stain - Final, Complete 01/09/18 Sputum Culture - Final, Complete Usual upper respiratory duncan Patient resulted labs reviewed. Imaging: Reviewed Imaging Films, Reviewed Imaging Report Discussion & Recommendations Discharge Planning: >30 minutes discharge planning Discharge Home Medications: Active Scripts Active Proventil Hfa (Albuterol Sulfate) 6.7 Gm Hfa.aer.ad 1 Puff IH Q4H 1 PUFF Sertraline HCl 50 Mg Tablet 50 Mg PO HS Prednisone 10 Mg Tab.ds.pk 10 Mg PO DAILY Take 6 tabs(60mg)daily,decrease by 1 tab(10mg)every other day. Advair 250-50 Diskus (Fluticasone/Salmeterol) 1 Each Blst.w.dev 1 Each IH BID Instructions to patient/family Please see electronic discharge instructions given to patient. Clinical Quality Measures DVT/VTE Risk/Contraindication: Risk Factor Score Per Nursin RFS Level Per Nursing on Admit: 2=Moderate Problem Qualifiers (1) COPD (chronic obstructive pulmonary disease): COPD type: COPD with acute exacerbation Qualified Codes: J44.1 - Chronic obstructive pulmonary disease with (acute) exacerbation RICK OLIVARES MD Jan 13, 2018 9:42 am
== END 2018-01-13 12:45 | disposition home or self-care (01) | DRG 190 ==
LOC: ER 16:09 → ICU 19:40 → 4TH 01-10 11:55
PROVIDERS: ADMIT Internal Medicine; ATTEND Internal Medicine
DX: J44.1 Chronic obstructive pulmonary disease with (acute) exacerbation (principal); J18.9 Pneumonia, unspecified organism; J44.0 Chronic obstructive pulmonary disease with (acute) lower respiratory infection; R59.0 Localized enlarged lymph nodes; R06.03 Acute respiratory distress; R09.02 Hypoxemia; E87.6 Hypokalemia; F17.210 Nicotine dependence, cigarettes, uncomplicated; E66.01 Morbid (severe) obesity due to excess calories; Z68.37 Body mass index [BMI] 37.0-37.9, adult; F41.9 Anxiety disorder, unspecified; F12.90 Cannabis use, unspecified, uncomplicated; E83.39 Other disorders of phosphorus metabolism; D72.829 Elevated white blood cell count, unspecified; R73.9 Hyperglycemia, unspecified; T38.0X5A Adverse effect of glucocorticoids and synthetic analogues, initial encounter; Z77.120 Contact with and (suspected) exposure to mold (toxic)
CPT/HCPCS: 36415; 36600; 71045; 71275; 80048; 80053; 80306; 82805; 83036; 83605; 83735; 83880; 84100; 84439; 84443; 84703; 85007; 85025; 85027; 85379; 87040; 87070; 87205; 87804; 94640; 94664; 94760; 96361; 96374; 99291